=== PATIENT | female | born 1970 | race Caucasian/White ===

== ENCOUNTER 2024-02-14 06:21 | Day surgery (SDC) | payer OTHER, SELFPAY | END 2024-02-14 10:10 | disposition home or self-care (01) | LOC: GI 06:21 | PROVIDERS: ATTENDING PHYSICIAN Internal Medicine Gastroenterology | DX: Z12.11 Encounter for screening for malignant neoplasm of colon (principal); K62.89 Other specified diseases of anus and rectum; K64.8 Other hemorrhoids; Z86.0100 Personal history of colon polyps, unspecified | CPT/HCPCS: 45380; 88305 ==